=== PATIENT | male | born 1990 | race Two or more races ===

== ENCOUNTER 2023-05-29 19:45 | Emergency (ER) | payer OTHER ==
[2023-05-29] MEDS ORDERED: CEPH-558 PO (22:26)
[2023-05-29] MEDS ORDERED: BACI28.410 TP (22:26)
== END 2023-05-29 20:20 | disposition left against medical advice (07) ==
LOC: EMS 19:45
DX: Z53.21 Procedure and treatment not carried out due to patient leaving prior to being seen by health care provider (principal)

== ENCOUNTER 2023-05-29 21:33 | Emergency (ER) | payer OTHER ==
[~2023-05-29] VITALS: Ht 177.8 cm; Wt 102.3 kg
[2023-05-29] MEDS ORDERED: CEPH-558 PO (22:26)
[2023-05-29] MEDS ORDERED: BACI28.410 TP (22:26)
[2023-05-29 22:30] VITALS: BP 132/88; PULSE 85; RESP 16; TEMP 97.3
[2023-05-29] MEDS ORDERED: IBUPROFEN 600 MG TABLET PO ONE (22:30)
[2023-05-29] MEDS ORDERED: CEPHALEXIN MONOHYDRATE 500 MG CAPSULE PO ONE (22:30)
[2023-05-29] MEDS ORDERED: BACITRACIN 0.9 GM PACKET OINTMENT TP ONE (22:30)
== END 2023-05-29 23:48 | disposition home or self-care (01) ==
LOC: EMS 21:34
DX: S61.101A Unspecified open wound of right thumb with damage to nail, initial encounter (principal); X58.XXXA Exposure to other specified factors, initial encounter; Y93.89 Activity, other specified; Y92.89 Other specified places as the place of occurrence of the external cause; Y99.8 Other external cause status
CPT/HCPCS: 99284; Z7502; Z7610

== ENCOUNTER 2024-06-11 15:38 | Emergency (ER) | payer OTHER ==
[~2024-06-11] VITALS: Ht 180.3 cm; Wt 104.5 kg
[~2024-06-11 15:38] MED LIST: BACI28.410 TP; CEPH-558 PO
[2024-06-11] MEDS: DOXYCYCLINE HYCLATE 100 MG TABLET PO ONE (19:04)
[2024-06-11] MEDS: CEPHALEXIN MONOHYDRATE 500 MG CAPSULE PO ONE (19:05)
[2024-06-11] MEDS ORDERED: DOXY-354 PO (20:53)
[2024-06-11] MEDS ORDERED: CEPH-558 PO (20:53)
[2024-06-11 23:19] VITALS: BP 127/68; PULSE 74; RESP 18; TEMP 98.3; O2SAT 100
== END 2024-06-11 23:21 | disposition home or self-care (01) ==
LOC: EMS 15:38
DX: L03.113 Cellulitis of right upper limb (principal)
CPT/HCPCS: 10140; 99284; 73130-TC; Z7502; Z7610

== ENCOUNTER 2024-10-12 04:46 | Emergency (ER) | payer OTHER ==
[~2024-10-12] VITALS: Ht 180.3 cm; Wt 109.1 kg
[~2024-10-12 04:46] MED LIST changes: -BACI28.410 TP; +DOXY-354 PO
[2024-10-12 04:54] VITALS: TEMP 97.9
[2024-10-12] MEDS ORDERED: CEPH-558 PO (07:22)
[2024-10-12] MEDS ORDERED: IBUP-1492 PO (07:22)
[2024-10-12 07:39] VITALS: BP 124/81; PULSE 88; RESP 20; O2SAT 97
== END 2024-10-12 07:47 | disposition home or self-care (01) ==
LOC: EMS 05:08
DX: S91.312A Laceration without foreign body, left foot, initial encounter (principal); Z79.899 Other long term (current) drug therapy; X58.XXXA Exposure to other specified factors, initial encounter; Y93.89 Activity, other specified; Y92.89 Other specified places as the place of occurrence of the external cause; Y99.8 Other external cause status
CPT/HCPCS: 99283

== ENCOUNTER 2025-01-24 03:40 | Emergency (ER) | payer OTHER ==
[~2025-01-24] VITALS: Ht 177.8 cm; Wt 104.5 kg
[~2025-01-24 03:40] MED LIST changes: +IBUP-1492 PO
[2025-01-24 03:45] VITALS: BP 131/83; PULSE 104; RESP 16; TEMP 97.3; O2SAT 100
[2025-01-24] MEDS: DOXYCYCLINE HYCLATE 100 MG TABLET PO ONE (04:33)
== END 2025-01-24 04:36 | disposition home or self-care (01) ==
LOC: EMS 03:40
DX: L03.115 Cellulitis of right lower limb (principal); F12.90 Cannabis use, unspecified, uncomplicated; F17.210 Nicotine dependence, cigarettes, uncomplicated; Z79.899 Other long term (current) drug therapy
CPT/HCPCS: 99283